=== PATIENT | male | born 1945 | race Caucasian/White ===

== ENCOUNTER 2019-03-28 13:32 | Day surgery (SDC) | payer OTHER ==
[~2019-03-28 13:32] MED LIST: CLIN300 PO
== END 2019-03-28 22:40 | disposition home or self-care (01) ==
LOC: CT 13:32
DX: C79.51 Secondary malignant neoplasm of bone (principal); C76.0 Malignant neoplasm of head, face and neck
CPT/HCPCS: 20225; 77012; 88305; 88311; 88341; 88342